=== PATIENT | female | born 1960 | race Caucasian/White ===

== ENCOUNTER 2024-11-20 09:14 | Emergency (ER) | payer OTHER ==
[2024-11-20 10:09] VITALS: RESP 18; TEMP 98; BMI 24.5
[2024-11-20] MEDS ORDERED: LIDOCAINE 5% TOPICAL PATCH ONE (10:48)
[2024-11-20] MEDS ORDERED: METOCLOPRAMIDE HCL INJECTION 10 MG/2 ML VIAL ONE (10:48)
[2024-11-20] MEDS: METOCLOPRAMIDE HCL INJECTION 10 MG/2 ML VIAL IVPB ONE (11:04)
[2024-11-20] MEDS: SODIUM CHLORIDE 0.9% 500 ML INFUS.BAG IV ONE (11:05)
[2024-11-20] MEDS: LIDOCAINE 5% TOPICAL PATCH TP ONE (11:10)
[2024-11-20 11:24] LABS: ABSOLUTE IMMATURE GRANULOCYTES 0.01 x10^3/uL (0.0-0.031); BASOPHILS # 0.04 x10^3/uL (0.01-0.08); EOSINOPHIL % 0.8 % (0.7-5.8); EOSINOPHILS # 0.05 x10^3/uL (0.04-0.36); MCHC 33.3 g/dl (32.2-35.5); MEAN CELL VOLUME 83.7 fl (79.4-94.8); MEAN PLT VOLUME 10.4 fl (9.4-12.3); MONOCYTE # 0.37 x10^3/uL (0.24-0.86); MONOCYTE % 5.7 % (4.7-12.5); RDW 12.8 % (12.4-16.4)
[2024-11-20 11:32] LABS: EPI CELLS 2 /uL (0-25.1); HYALINE CASTS 0 /uL (0-3.1); URINE APPEARANCE CLEAR; URINE BACTERIA 23 /uL (0-1359); URINE BILIRUBIN NEGATIVE (NEGATIVE); URINE COLOR YELLOW; URINE GLUCOSE (UA) NEGATIVE (NEGATIVE); URINE KETONE NEGATIVE (NEGATIVE); URINE LEUK ESTERASE NEGATIVE (NEGATIVE); URINE NITRITE NEGATIVE (NEGATIVE); URINE PROTEIN NEGATIVE (NEGATIVE); URINE RBC 28 /uL (0-23.9); URINE UROBILINOGEN 0.2 mg/dL (0.2-1.0); URINE WBC 4 /uL (0-25.8)
[2024-11-20 11:33] LABS: INR 1.0 (0.83-1.09); PROTHROMBIN TIME (PATIENT) 11.0 SEC (9.7-13.0)
[2024-11-20 11:36] LABS: ACTIVATED PTT 30.0 SECONDS (25.2-36.5)
[2024-11-20 12:47] LABS: GLUCOSE,RANDOM 101 mg/dL (74-106); TOT PROT 8.1 g/dl (6.4-8.2)
[2024-11-20 12:48] LABS: CO2 25 mmol/L (21-32)
[2024-11-20 12:50] LABS: ALK PHOS 111 U/L (40-150)
[2024-11-20 12:52] LABS: SGPT/ALT 36 U/L (0-55)
[2024-11-20 12:53] LABS: CREATININE 1.01 mg/dL (0.55-1.3); LDL CHOLESTEROL (ONLY SJRH) 78 mg/dL (5-100); SGOT/AST 30 U/L (5-34)
[2024-11-20 15:11] VITALS: BP 119/80; PULSE 79
[2024-11-20] MEDS ORDERED: LIDOCAINE PATCH REMOVAL MC SCH (22:00)
== END 2024-11-20 15:25 | disposition home or self-care (01) ==
LOC: JER 09:14
PROC: 3E033GC Introduction of Other Therapeutic Substance into Peripheral Vein, Percutaneous Approach (ICD-10-PCS; principal; 2024-11-20)
DX: R51.9 Headache, unspecified (principal); G89.29 Other chronic pain; R42 Dizziness and giddiness; H53.149 Visual discomfort, unspecified; R20.2 Paresthesia of skin
CPT/HCPCS: 36415; 70450-TC; 70496-TC; 70498-TC; 71045-TC-FY; 80053; 80061; 81003; 82550; 83036; 84484; 85025; 85610; 85730; 86850; 86900; 86901; 93005; 93010; 99285-25